=== PATIENT | male | born 1940 | race Caucasian/White ===

== ENCOUNTER → 2016-08-31 | Outpatient (CLI) | payer OTHER, MEDICARE ==
[~2016-08-31] MED LIST: ALLOPURINOL 30300 M1 PO; ALLOPURINOL 30300 M2 PO; ALLOPURINOL PO; AMARYL2 MG PO; ASPIRIN EC325 M1 PO; ASPIRIN EC81 M1 PO; ASPIRIN PO; ASPIRIN325 PO; ASPRIMOX 325 M325 MG PO; AVODART; B & O SUPPRETT1 EAC1 RECTAL; BACTRIM DS TAB1 EACH PO; BONINE25 MG PO; CENTRUM SILVER1 EAC4 PO; COUMADIN 5 MG TA5 M1; COUMADIN 5 MG TA5 M1 PO; FINASTERIDE5 MG PO; FISH OIL 1,0001 EAC5 PO; FLOMAX PO; FUROSEMIDE 40 M40 M1 PO; FUROSEMIDE 40 M40 MG PO; HYDROCODON-ACE1 EAC8 PO; HYDROCODONE-AP1 EAC6 PO; IBUPROFEN200 M1 PO; K-DUR 20 MEQ T20 MEQ PO; LASIX 40 MG TAB40 M2 PO; LIPITOR 20 MG T20 M1 PO; LISINOPRIL20 MG PO; LISINOPRIL40 MG PO; MULTIVITAMINS PO; NABUMETONE 750750 M1 PO; NORCO 5-325 TA1 EACH PO; NORVASC5 MG PO; OXYBUTYNIN 5 MG5 M2 PO; PERCOCET 5-3251 EACH PO; POTASSIUM CITRATE PO; POTASSIUM PO; POTASSIUM20 PO; PREDNISONE10 MG PO; PRILOSEC 20 MG20 MG PO; PRINIVIL PO; PROSCAR 5MG TABL5 MG PO; RELAFEN750 MG PO; SIMVASTATIN40 MG PO; TAMSULOSIN HCL0.4 M1 PO; TRANSDERM-SCOP1 EACH TD; VERTICALM25 MG PO; VESICARE 5 MG TA5 MG PO; ZESTORETIC 20-1 EAC3 PO; ZOCOR40 MG PO
== END ==
LOC: MRI 09:24
DX: M47.896 Other spondylosis, lumbar region (principal)

== ENCOUNTER → 2016-09-09 | Outpatient (CLI) | payer OTHER, MEDICARE ==
[~2016-09-09] VITALS: Ht 175.3 cm; Wt 129.4 kg
[~2016-09-09] MED LIST changes: +ANTIVERT25 MG PO; +ASA5UEC PO
--- NOTE | ~2016-09-09 | HPC ---
[facility] [place] [address] PAIN MANAGEMENT CONSULTATION Name: DARIOGREGORIOMARNITASNEEM Room #: REG ANGELINE Lyons#: [id number] Admission: 09/09/16 Attend Phys: Austin Carvajal DO Discharge: Date of : 42 Report #: [id number] THIS REPORT FOR: //name// CC: Hermilo Carvajal HISTORY OF PRESENT ILLNESS: The patient is a pleasant 76-year-old gentleman. He was seen 4-1/2 years ago for lumbar radicular symptoms, had an epidural injection in June of 2012 with significant improvement of baseline pain. The patient returns to the pain clinic noting that symptoms have gradually recurred; he is complaining specifically of pain worse in the morning. About 3 months ago, he was bending over to inspect something under a sink and developed acute exacerbation of pain. In the last 3 months, pain has been getting up to a 9 on a VAS. He describes constant, chronic aching, sharp, burning pain, low back, left a little worse than right, with pain primarily posterior thigh and some radiating into the anterior lateral kyle. He uses a cane in his right hand recently to help with balance. He has subjective weakness in both legs. Paresthesia, bilateral feet, though it is difficult to tell if this is secondary to poorly controlled diabetes or radicular symptoms, likely component of both. He has been worked up for some right hip DJD and tells me he had a surgery with Dr. Philipp Pino in 2011, who removed a bony fragment from the hip joint (?). He is having some increasing DJD issues in the hip proper, but the more radicular component of back and leg pain radiating down the posterolateral thigh to the anterior kyle has become quite problematic. PAST MEDICAL HISTORY: Reviewed the patient's medical history, he has non-insulin dependent diabetes, significant coronary artery disease, hypertension. Uses a CPAP for sleep apnea. Benign prostatic hypertrophy. History of gout. CURRENT MEDICATIONS: Include meclizine, glimepiride, Amlodipine, atorvastatin, Lasix, Prilosec, finasteride and allopurinol. PHYSICAL EXAMINATION: GENERAL: Reveals a 9-pedc-5-inch, 285-pound gentleman. BMI is 42.1 kilograms per meter squared. VITAL SIGNS: Stable, as noted in the EMR. NEUROLOGIC: Cranial nerves 2-12 are grossly intact. He does have a little lateral gaze nystagmus and admits to some easy vertigo. NECK: Thyroid is modestly enlarged, no nodules are noted. Cervical range of motion is otherwise full. MUSCULOSKELETAL: Upper extremity strength is generally preserved. He has an endomorphic build. Rises from the chair using armrest. Modestly antalgic gait. Diffuse tenderness across the low back. Positive straight leg raise, left somewhat greater than right. Does have decreased hip flexion strength and [address] [address] PAIN MANAGEMENT CONSULTATION Name: TASNEEM PARRA Room #: REG CLVahid Lyons#: [id number] Admission: 09/09/16 Attend Phys: Austin Carvajal DO Discharge: Date of : 42 Report #: [id number] decreased plantar flexion bilaterally. DIAGNOSTIC STUDIES: We did review diagnostic studies. He has a recent MRI from 08/31/2016. L3-L4 notes severe narrowing at 2 mm along the upper level of L4. Canal measures 3-4 mm at this level, with epceqeld-ol-pcnigm neural foraminal stenosis bilaterally. L4-L5 notes rkodhnys-pm-uahztx neural foraminal stenosis, right greater than the left. L5-S1 similarly notes moderate neural foraminal stenosis, bilateral. ASSESSMENT: Symptomatic lumbar radiculopathy secondary to spinal stenosis in a gentleman who has done well with occasional epidural injections; in fact, last injection had been greater than 3 years ago. RECOMMENDATIONS: 1. Continue baseline medications unchanged. 2. Lumbar epidural injection under fluoroscopy at L5-S1. 3. Follow up in 3 weeks to re-evaluate. PROCEDURE NOTE PROCEDURE: Lumbar epidural injection under fluoroscopy. PROCEDURE NOTE: After both written and informed consent to include risk of spinal cord damage, increased pain, weakness and dural puncture, the patient was taken to the fluoroscopy suite, placed in the prone position. After sterile prep and drape, a skin wheal with lidocaine was raised. A 22-gauge epidural Tuohy needle was inserted in the midline at the level of L5-S1 with good loss to resistance. Negative aspiration for cerebrospinal fluid or blood was noted. Then 1 mL of Omnipaque under biplanar fluoroscopy showed good spread within the epidural space. This was followed with 80 mg of triamcinolone plus 1 mL of 1.5% preservative-free Xylocaine, 0.5 mL Xylocaine was then injected to flush the needle; it was removed. The patient was monitored for an appropriate period of time and discharged in good and stable condition. <ELECTRONICALLY SIGNED> By: Austin Carvajal DO 09/12/16 1427 1048 1144 Austin Carvajal DO /nt
[2016-09-09 08:34] VITALS: BP 101/67
== END | disposition home or self-care (01) ==
LOC: PAIN 07:36
DX: M54.16 Radiculopathy, lumbar region (principal); M48.06 Spinal stenosis, lumbar region; Z68.41 Body mass index [BMI] 40.0-44.9, adult; E11.9 Type 2 diabetes mellitus without complications; I25.10 Atherosclerotic heart disease of native coronary artery without angina pectoris; I10 Essential (primary) hypertension; N40.0 Benign prostatic hyperplasia without lower urinary tract symptoms; M10.9 Gout, unspecified; Z87.891 Personal history of nicotine dependence

== ENCOUNTER → 2016-12-01 | Outpatient (CLI) | payer OTHER, MEDICARE ==
[~2016-12-01] VITALS: Ht 175.3 cm; Wt 128.9 kg
[~2016-12-01] MED LIST changes: +PRINIVIL40 MG PO
--- NOTE | ~2016-12-01 | HPC ---
[facility] [place] [address] PAIN MANAGEMENT CONSULTATION Name: TASNEEM PARRA Room #: REG [facility] Dav.#: [id number] Admission: 12/01/16 Attend Phys: Austin Carvajal DO Discharge: Date of : 42 Report #: [id number] THIS REPORT FOR: //name// CC: Hermilo Carvajal HISTORY OF PRESENT ILLNESS: The patient is a 76-year-old gentleman, prior seen in the pain clinic on 09/09/2016, given epidural injection at that time. He prior had epidural injections back in 2012. He returns to pain clinic today noting that injection afforded very good relief, specifically 90% relief for 2 months. Pain has gradually begun to recur, low back, right greater than left leg. Uses a cane for balance. PHYSICAL EXAMINATION: Shows a 76-year-old gentleman, moderately obese with a BMI of 42 kilograms per meter squared. Vital signs stable as noted in the EMR. Rises from chair using armrest. Modestly antalgic gait. Diffuse tenderness across the low back. Positive straight leg raise, right greater than left. Does have a little ataxic gait. ASSESSMENT: Symptomatic lumbar radiculopathy, greater than 90% relief for 2 months from lumbar epidural injection. RECOMMENDATION: 1. Repeat epidural injection under fluoroscopy today. We will use 60 mg of triamcinolone in consideration of diabetes. 2. Relafen 750 b.i.d., prescription generated, use this on a p.r.n. basis. Follow up simply as needed. ASSESSMENT: Symptomatic lumbar radiculopathy secondary to spinal stenosis. PROCEDURE: Lumbar epidural injection under fluoroscopy. PROCEDURE NOTE: After both written and informed consent to include risk of spinal cord damage, increased pain, weakness and dural puncture, the patient was taken to the fluoroscopy suite, placed in the prone position. After sterile prep and drape, a skin wheal with lidocaine was raised. A 4-1/2-inch, 20-gauge epidural Tuohy needle was inserted in the midline at L5-S1 with good loss to resistance. Negative aspiration for cerebrospinal fluid or blood was noted. Then 1 mL of Omnipaque under biplanar fluoroscopy showed good spread within the epidural space. This was followed with 60 mg of triamcinolone plus 1 mL of 1.5% preservative-free Xylocaine, 0.5 mL Xylocaine was then injected to flush the needle; it was removed. The patient was monitored for an appropriate period of time and discharged in good and stable condition. <ELECTRONICALLY SIGNED> By: Austin Carvajal DO 12/02/16 0926 1714 2239 Austin Carvajal DO /nt
[2016-12-01 10:15] VITALS: BP 150/85
== END | disposition home or self-care (01) ==
LOC: PAIN 09-26 08:52
DX: M54.16 Radiculopathy, lumbar region (principal); Z68.41 Body mass index [BMI] 40.0-44.9, adult; E66.9 Obesity, unspecified; Z87.891 Personal history of nicotine dependence

== ENCOUNTER → 2017-03-27 | Outpatient (CLI) | payer OTHER, MEDICARE ==
[~2017-03-27] VITALS: Ht 175.3 cm; Wt 130.3 kg
--- NOTE | ~2017-03-27 | HPC ---
[facility] [address] [place] [address] PAIN MANAGEMENT CONSULTATION Name: ERENDIRAMARNITASNEEM Room #: REG [facility] [id number] Admission: 03/27/17 Attend Phys: Austin Carvajal DO Discharge: Date of : 42 Report #: [id number] THIS REPORT FOR: //name// CC: Hermilo Carvajal DATE OF SERVICE: 03/27/2017 The patient is a 76-year-old gentleman typically treated for lumbar radiculopathy secondary to spinal stenosis. Prior had an injection in August with excellent relief, prior injections in 2012 with excellent relief. Last visit 12/01/2016, repeat epidural injection L5-S1 with dwindling efficacy. Returns to pain clinic today noting pain is 5 on VAS. BMI is elevated at 42.4 kilograms per meter squared. Vital signs are stable. He has not fallen in last 2 months but does use a cane for balance. He is describing increasing neurogenic claudication and loss of proprioception. States if he sits for a period of time and tries to get up, he has a difficult time ascertaining where his feet are relative in space. PHYSICAL EXAMINATION: Rises from chair using armrest and modestly antalgic gait. Lower extremity strength is diminished, but symmetric. Straight leg raise is modestly positive bilaterally. ASSESSMENT: Symptomatic lumbar radiculopathy secondary to spinal stenosis. Long discussion with the patient today about therapeutic options. RECOMMENDATIONS: 1. We will refer to Neurosurgery. Given concerns for neurogenic claudication and loss of proprioception. 2. We will repeat epidural injection under fluoroscopy today. 3. Follow up simply as needed. Last MRI 08/31/2016 was reviewed with the patient. ASSESSMENT: Symptomatic lumbar radiculopathy secondary to spinal stenosis. PROCEDURE: Lumbar epidural injection under fluoroscopy. PROCEDURE NOTE: After both written and informed consent to include risk of spinal cord damage, increased pain, weakness and dural puncture, the patient was taken to the fluoroscopy suite, placed in the prone position. After sterile prep and drape, a skin wheal with lidocaine was raised. A 4.5-inch 20-gauge Tuohy needle was inserted in the midline at L4-L5 with good loss to resistance. Negative aspiration for cerebrospinal fluid or blood was noted. Then 1 mL of Omnipaque under biplanar fluoroscopy showed good spread within the epidural space. This was followed with 80 mg of triamcinolone plus 1 mL of 1.5% [address] [address] PAIN MANAGEMENT CONSULTATION Name: TASNEEM PARRA Room #: REG CLI Eloy#: [id number] Admission: 03/27/17 Attend Phys: Austin Carvajal DO Discharge: Date of : 42 Report #: [id number] preservative-free Xylocaine, 0.5 mL Xylocaine was then injected to flush the needle; it was removed. The patient was monitored for an appropriate period of time and discharged in good and stable condition. <ELECTRONICALLY SIGNED> By: Austin Carvajal DO 03/29/17 0724 1551 [id number] Austin Carvajal DO /nt
[2017-03-27 13:16] VITALS: BP 154/82
== END ==
LOC: PAIN 07:38
DX: M54.16 Radiculopathy, lumbar region (principal); M48.061 Spinal stenosis, lumbar region without neurogenic claudication; Z85.51 Personal history of malignant neoplasm of bladder; Z79.82 Long term (current) use of aspirin; Z79.899 Other long term (current) drug therapy; I10 Essential (primary) hypertension; Z87.891 Personal history of nicotine dependence

== ENCOUNTER → 2017-04-24 | Outpatient (CLI) | payer OTHER, MEDICARE | LOC: ULTRA 12:54 | DX: I82.4Z2 Acute embolism and thrombosis of unspecified deep veins of left distal lower extremity (principal); M79.89 Other specified soft tissue disorders ==

== ENCOUNTER 2017-07-20 03:27 | Emergency (ER) | payer OTHER, MEDICARE ==
[~2017-07-20] VITALS: Ht 152.4 cm; Wt 124.5 kg
--- NOTE | ~2017-07-20 | EKG ---
[address] [place] [place] [address] ELECTROCARDIOGRAM REPORT Name: DARIOGREGORIOMARNITASNEEM TORRES Room #: DEP [facility]#: [id number] Admission: 07/20/17 Attend Phys: Discharge: 07/20/17 Date of : 42 Report #: [id number] THIS REPORT FOR: //name// [facility] ED Test Date: 2017-07-20 Test Time: 03:39:50 Pat Name: TASNEEM PARRA Department: Room: Gender: Triage Nurse: SWETHA : 1940 Requested By: Elizabeth Cunningham Order Number: [id number] MD: Demar Nicole Measurements Intervals Thornton Rate: 74 P: 26 NM: 186 QRS: 12 QRSD: 98 T: 33 QT: 393 QTc: 436 Interpretive Statements Sinus rhythm with occasional atrial premature complex Borderline low voltage, extremity leads Abnormal R-wave progression, late transition Compared to ECG 07/03/2012 16:33:16 Premature supraventricular complexes now present Electronically Signed On 07-20-2017 8:39:37 CDT by Demar Nicole [email or web address] <ELECTRONICALLY SIGNED> By: Demar Nicole MD, [facility] 07/20/17 0839 0339 0339 Demar Nicole MD, [facility] /EPI
[2017-07-20 04:13] LABS: ABSOLUTE NEUTROPHILS 4.6 thou/uL (1.4-8.2); BASOPHILS 1.2 % (0.0-2.0); EOSINOPHILS 2.9 % (0.0-3.0); HEMATOCRIT 42.2 % (42.0-52.0); HEMOGLOBIN 14.2 gm/dL (14.0-18.0); LYMPHOCYTES 23.6 % (24.0-44.0); MCH 27.7 pg (26.0-34.0); MCHC 33.7 g/dL (28.0-37.0); MCV 82.3 fL (80.0-100.0); MONOCYTES 8.7 % (1.0-8.0); PLATELET COUNT 187 thou/uL (150-400); POLYS 63.6 % (36.0-66.0); RBC 5.12 mil/uL (4.50-6.00); RDW 15.2 % (10.5-14.5); WBC 7.3 thou/uL (4.0-11.0)
[2017-07-20 04:18] LABS: ANION GAP 10 mmol/L (7-16); BUN 31 mg/dL (7-18); CALCIUM 8.8 mg/dL (8.5-10.1); CHLORIDE 106 mmol/L (98-107); CO2 22 mmol/L (21-32); CREATININE 1.2 mg/dL (0.7-1.3); GLUCOSE 119 mg/dL (74-106); POTASSIUM 3.6 mmol/L (3.5-5.1); SODIUM 138 mmol/L (136-145)
[2017-07-20 04:26] LABS: MAGNESIUM 1.8 mg/dL (1.8-2.4); TROPONIN-I < 0.04 ng/mL (<0.06)
== END 2017-07-20 06:10 | disposition home or self-care (01) ==
LOC: ER 03:27
PROVIDERS: Emergency Medicine
DX: R07.89 Other chest pain (principal); R00.2 Palpitations; K21.9 Gastro-esophageal reflux disease without esophagitis; I10 Essential (primary) hypertension; M10.9 Gout, unspecified; E78.00 Pure hypercholesterolemia, unspecified; N40.0 Benign prostatic hyperplasia without lower urinary tract symptoms; Z95.811 Presence of heart assist device

== ENCOUNTER → 2017-07-28 | Outpatient (CLI) | payer OTHER, MEDICARE | LOC: MRI 06:09 | DX: M51.16 Intervertebral disc disorders with radiculopathy, lumbar region (principal); M51.37 Other intervertebral disc degeneration, lumbosacral region; M48.061 Spinal stenosis, lumbar region without neurogenic claudication; N28.1 Cyst of kidney, acquired ==

== ENCOUNTER → 2017-08-21 | Outpatient (CLI) | payer OTHER, MEDICARE | LOC: CAT 09:02 | DX: M51.16 Intervertebral disc disorders with radiculopathy, lumbar region (principal); M41.86 Other forms of scoliosis, lumbar region; M48.061 Spinal stenosis, lumbar region without neurogenic claudication ==

== ENCOUNTER → 2017-09-06 | Outpatient (CLI) | payer OTHER, MEDICARE | LOC: CAT 09:54 | DX: N28.1 Cyst of kidney, acquired (principal); K76.89 Other specified diseases of liver; K40.90 Unilateral inguinal hernia, without obstruction or gangrene, not specified as recurrent; K57.30 Diverticulosis of large intestine without perforation or abscess without bleeding; I25.10 Atherosclerotic heart disease of native coronary artery without angina pectoris; I70.0 Atherosclerosis of aorta; M47.816 Spondylosis without myelopathy or radiculopathy, lumbar region; R91.8 Other nonspecific abnormal finding of lung field; I10 Essential (primary) hypertension; E11.9 Type 2 diabetes mellitus without complications ==

== ENCOUNTER → 2018-12-14 | Outpatient (CLI) | payer OTHER, MEDICARE | LOC: ULTRA 10:27 | DX: N43.3 Hydrocele, unspecified (principal); N50.3 Cyst of epididymis ==

== ENCOUNTER → 2019-02-27 | Outpatient (CLI) | payer OTHER, MEDICARE ==
[~2019-02-27] VITALS: Ht 170.2 cm; Wt 122.9 kg
[~2019-02-27] MED LIST changes: +PRILOSEC OTC20 MG PO; +ZYLOPRIM300 MG PO
--- NOTE | 2019-03-01 14:07 | PATH ---
[facility] [address] [address] [place] [address] PATHOLOGY RPT PROCEDURE Name: TASNEEM GOODWIN Room #: REG CLVahid MDawit.#: [id number] Admission: 02/27/19 Date of : 42 Discharge: Report #: [id number] Path Case #: [id number] [facility] Accession Number: [id number] . 01 Material submitted: . PART A: duodenum bulb - BIOPSY OF DUODENAL BULB SUBMUCOSAL NODULE PART B: stomach - GASTRIC POLYPS PART C: esophagus - BIOPSY OF DISTAL ESOPHAGUS R/O BARRETTS. Modifiers: distal PART D: colon - POLYP AT TRANSVERSE COLON X3. Modifiers: transverse PART E: cecum - POLYP AT CECUM PART F: colon - POLYP AT ASCENDING COLON. Modifiers: ascending PART G: colon - POLYP AT DESCENDING COLON. Modifiers: descending PART H: colon - POLYP AT SIGMOID COLON. Modifiers: sigmoid . 01 Clinical history: . Pre-op diagnosis: Dysphagia, polyp Post-op diagnosis: GERD, history of polyps C: R/O Harper's . 02 Diagnosis: A. 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 - Overlying mucosa showing reactive changes. . B. Polyps, gastric polyp, endoscopic biopsy: - Hyperplastic polyp. - Negative for dysplasia. . C. Gastroesophageal mucosa, GE junction, endoscopic biopsy: - Moderate chronic inflammation. - Negative for intestinal metaplasia or dysplasia. . D. Polyp x 3, transverse colon polyp, endoscopic biopsy: - One fragment showing a tubular adenoma without high grade dysplasia. - Remainder of fragments showing inflamed hyperplastic polyps without dysplasia. . E. Polyp, at cecum, endoscopic biopsy: - Tubular adenoma. - Negative for high grade dysplasia. . F. Polyp, at ascending colon, endoscopic biopsy: - Fragments of hyperplastic polyp. - Negative for dysplasia. . G. Polyp, at descending colon, endoscopic biopsy: [facility] [address] [place] [address] PATHOLOGY RPT PROCEDURE Name: TASNEEM GOODWIN Room #: REG CLI [facility].#: [id number] Admission: 02/27/19 Date of : 42 Discharge: Report #: [id number] Path Case #: [id number] - Hyperplastic polyp. - Negative for dysplasia. . H. Polyp, at sigmoid colon, endoscopic biopsy: - Hyperplastic polyp. - Negative for dysplasia. [facility] 02/28/2019 1234 Local . 02 Comment: Part A: Examination shows a neoplasm with ramon and organoid formation. Properly controlled immunohistochemical stains are performed on block A1. The tumor shows granular reactivity with synaptophysin, as well as chromogranin consistent with neuroendocrine origin. Ki-67 is performed for proliferative activity and it shows less than 1% activity present. CD45 is reactive within the lymphocytes. . Dr. Sara Wilkins has seen corporate sales representative slides of this case and concurs with the diagnosis rendered. Findings of this case are conveyed to Dr. Suresh Ochoa in the morning of 03/01/19. (IUV/db; 02/28/2019) . 02 Electronically signed: . Jyothi Galan MD, Pathologist NPI- [id number] . 01 Gross description: . A. The specimen is received in formalin, labeled "Tasneem Goodwin, biopsy of duodenal bulb submucosal nodule". Received are two segments of pale triana soft tissue measuring 0.4 cm each in maximum dimensions. The specimen is submitted entirely in cassette A1. . B. The specimen is received in formalin, labeled "Tasneem Goodwin, gastric polyps". Received are three segments of pale triana soft tissue ranging in size from 0.3 to 0.4 cm in maximum dimensions. The specimen is submitted entirely in cassette B1. . C. The specimen is received in formalin, labeled "Tasneem Goodwin, biopsy of distal esophagus, R/O Harper's". Received are two segments of pale triana soft tissue ranging in size from 0.5 to 0.6 cm in maximum dimensions. The specimen is submitted entirely in cassette C1. . D. The specimen is received in formalin, labeled "Tasneem Sharifge, polyp at transverse colon x3". Received are five segments of pale triana soft tissue ranging in size from 0.2 to 1.1 cm in maximum dimensions. The specimen is submitted entirely in cassette D1. . E. The specimen is received in formalin, labeled "Tasneem Digeorge, polyp [facility] [address] [place] [address] PATHOLOGY RPT PROCEDURE Name: TASNEEM GOODWIN Room #: REG [facility]#: [id number] Admission: 02/27/19 Date of : 42 Discharge: Report #: [id number] Path Case #: [id number] at cecum". Received are two segments of pale triana soft tissue ranging in size from 0.2 to 0.4 cm in maximum dimensions. The specimen is submitted entirely in cassette E1. . F. The specimen is received in formalin, labeled "Tasneem Goodwin, polyp at ascending colon x3". Received are three segments of pale triana soft tissue ranging in size from 0.5 to 0.7 cm in maximum dimensions. The specimen is submitted entirely in cassette F1. . G. The specimen is received in formalin, labeled "Tasneem Goodwin, polyp at descending colon". Received is a segment of pale triana soft tissue measuring 0.4 cm in maximum dimensions. The specimen is submitted entirely in cassette G1. . H. The specimen is received in formalin, labeled "Tasneem Goodwin, polyp at sigmoid". Received are four segments of pale triana soft tissue ranging in size from 0.3 to 0.4 cm in maximum dimensions. The specimen is submitted entirely in cassette H1. (CAA; 02/27/2019) QAC/QAC 02/27/2019 1545 Local . 02 Pathologist provided ICD-10: D3A.8, K31.7, K22.8, D12.3, K63.5, D12.0 . 02 CPT . 267562, 924807, 631812, 720883, 686394, 022533, 650400, 139875, D71743, Y82521, 800393 Specimen Comment: A courtesy copy of this report has been sent to [phone], [phone] Specimen Comment: [id number] Specimen Comment: Report sent to / DR TSANG Performed at: 01 [facility] [address], [place], [place] [id number] MD J Carlos Taylor MD Phone: [phone] Performed at: [address] [id number] MD Jyothi Galan MD Phone: [phone]
--- NOTE | 2019-03-06 10:57 | P ---
[facility] [place] [address] [place] [address] PROCEDURE REPORT Name: TASNEEM PARRA Room #: REG [facility] [id number] Admission: 02/27/19 Attend Phys: Artis Camacho Discharge: Date of : 42 Report #: [id number] THIS REPORT FOR: //name// CC: Artis Winslow MD DATE OF SERVICE: 02/27/2019 PROCEDURE PERFORMED: Upper endoscopy with biopsies and esophageal dilation. HISTORY OF PRESENT ILLNESS: The patient is a 78-year-old male with a history of gastroesophageal reflux disease, has been taking Prilosec for several years. He reports intermittent dysphagia to solids primarily. This has been ongoing for approximately 8-10 months. No previous history of upper endoscopy, also had episode of dark stools recently. Recent hemoglobin was 13 range. He denies any abdominal pain. He also has a history of colon polyps. He is here for EGD and colonoscopy today. DESCRIPTION OF PROCEDURE: The risks and benefits of the procedure were explained to the patient, those risks including but not limited to bleeding, perforation and the risk of sedation. He understood these risks and gave informed consent. Sedation was given using propofol per anesthesia. Next, using a standard Olympus upper endoscope, the scope was placed in the patient's mouth and advanced under direct vision through the esophagus, stomach and into the second portion of the duodenum. Larynx normal in appearance. The upper and mid esophagus was normal. In the distal esophagus, a possible short segment of Harper's was noted. Biopsies were obtained. No evidence of esophagitis or stricture was noted. There were several small gastric polyps noted. Several biopsies were obtained, otherwise normal gastric mucosa. The pylorus was normal and patent. In the duodenal bulb, there was a 1.2-cm submucosal nodule. Biopsies were obtained. There was one area of erythema on the nodule. No evidence of bleeding or ulceration. The first portion of the duodenum was normal as well as the second portion. In the second portion, the major papilla was seen and normal in appearance. No other abnormalities in the duodenum other than the submucosal nodule. At this point, the scope was then brought back up into the patient's stomach and a Savary guidewire was inserted through the scope, leaving the guidewire in place as the scope was then withdrawn. Next, a 51-Mongolian Savary dilation of the esophagus was then performed without difficulty. The wire and dilator removed. The scope was reintroduced into the patient's stomach. There was no evidence of a mucosal tear after dilation. The scope was then withdrawn and the procedure terminated. The patient tolerated the procedure well. IMPRESSION: 1. 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 [address] [address] PROCEDURE REPORT Name: TASNEEM PARRA Room #: REG ANGELINE Lyons#: [id number] Admission: 02/27/19 Attend Phys: Artis Camacho Discharge: Date of : 42 Report #: [id number] 2. Small gastric polyps. 3. Submucosal nodule in the duodenal bulb, biopsies obtained. RECOMMENDATIONS: 1. Await biopsy results. 2. Observe the patient post-dilation. 3. Continue daily PPI therapy. 4. The patient may need endoscopic ultrasound for further evaluation of a duodenal bulb submucosal nodule with possible removal at that time. Thank you for allowing me to participate in his care. <ELECTRONICALLY SIGNED> By: Artis Ochoa MD 03/06/19 1057 0839 1055 Artis Ochoa MD /nt
--- NOTE | 2019-03-06 11:19 | P ---
[facility] [place] [address] PROCEDURE REPORT Name: TASNEEM PARRA Room #: REG [facility] [id number] Admission: 02/27/19 Attend Phys: Artis Camacho Discharge: Date of : 42 Report #: [id number] THIS REPORT FOR: //name// CC: Artis Winslow MD DATE OF SERVICE: 02/27/2019 PROCEDURE PERFORMED: Colonoscopy with polypectomies. HISTORY OF PRESENT ILLNESS: The patient is a 78-year-old male with a history of colon polyps, the last colonoscopy, reportedly 2012. He also has a family history of colon cancer in his father. He had an episode of dark stools recently. He is on aspirin. Recent hemoglobin of 13. Upper endoscopy was just performed. Plan is for a colonoscopy. DESCRIPTION OF PROCEDURE: The risks and benefits of the procedure were explained to the patient, those risks including, but not limited to bleeding, perforation, and the risk of the sedation. He understood these risks and gave the informed consent. Sedation was given using propofol per anesthesia. Next, a digital rectal exam was initially performed, which was normal. Next, using a standard Olympus colonoscope, the scope was placed in the patient's anus and advanced under direct vision to the cecum. The overall prep was good. In the cecum, there was a 4 mm sessile polyp. This was removed with a cold forceps. Also noted in the cecum were 2 nonbleeding AVMs. Because of his history of dark stools, I proceeded with a cautery using a 7-Croatian bipolar cautery. No evidence of bleeding after cauterization. In the ascending colon, there were a total of 3 polyps, ranged from 5-8 mm, all sessile, all removed by a snare cautery. In the transverse colon, another 3 polyps were noted, two of the larger that were 5-8 mm in diameter, sessile, were removed by a hot snare cautery and the smaller 4 mm sessile polyp was removed by a cold forceps. In the descending colon, there was a 6 mm sessile polyp. This was removed by a snare cautery. In the sigmoid colon, there were two 3-4 mm sessile polyps, both removed by cold forceps. Also, multiple scattered diverticula noted in the sigmoid colon. No evidence of inflammation. The rectal mucosa was normal. On retroflexion, no abnormalities were noted. The scope was then withdrawn and the procedure was terminated. The patient tolerated the procedure well. IMPRESSION: 1. Multiple colonic polyps as described above. 2. Sigmoid diverticulosis. 3. Two cecal AVMs, status post cautery, nonbleeding. 4. Otherwise, normal colonoscopy. RECOMMENDATIONS: [address] [address] PROCEDURE REPORT Name: DARIOGREGORIOTASNEEM GRIDER BRIAN Room #: REG CLVahid Lyons#: [id number] Admission: 02/27/19 Attend Phys: Artis Camacho Discharge: Date of : 42 Report #: [id number] 1. Await biopsy results. 2. Repeat colonoscopy in 3 years. Thank you for allowing me to participate in his care. <ELECTRONICALLY SIGNED> By: Artis Ochoa MD 03/06/19 1119 0935 1247 Artis Ochoa MD /nt
== END | disposition home or self-care (01) ==
LOC: GI 07:16
DX: K92.1 Melena (principal); D12.3 Benign neoplasm of transverse colon; D12.0 Benign neoplasm of cecum; K57.30 Diverticulosis of large intestine without perforation or abscess without bleeding; K55.20 Angiodysplasia of colon without hemorrhage; D3A.010 Benign carcinoid tumor of the duodenum; K20.9 Esophagitis, unspecified; K31.7 Polyp of stomach and duodenum; R13.19 Other dysphagia; I10 Essential (primary) hypertension; E11.9 Type 2 diabetes mellitus without complications; I25.2 Old myocardial infarction; G47.30 Sleep apnea, unspecified; K21.9 Gastro-esophageal reflux disease without esophagitis; M19.90 Unspecified osteoarthritis, unspecified site; M10.9 Gout, unspecified; N40.0 Benign prostatic hyperplasia without lower urinary tract symptoms; Z86.010 Personal history of colon polyps; Z80.0 Family history of malignant neoplasm of digestive organs; Z85.51 Personal history of malignant neoplasm of bladder; Z87.891 Personal history of nicotine dependence; Z79.899 Other long term (current) drug therapy; Z98.890 Other specified postprocedural states; Z86.718 Personal history of other venous thrombosis and embolism; Z79.01 Long term (current) use of anticoagulants; Z79.82 Long term (current) use of aspirin
CPT/HCPCS: 62110; 62900

== ENCOUNTER → 2019-03-22 | Outpatient (CLI) | payer OTHER, MEDICARE ==
[2019-03-22 10:21] LABS: CREATININE 1.2 mg/dL (0.7-1.3)
== END ==
LOC: CAT 07:13
PROVIDERS: Specialist
DX: C7A.010 Malignant carcinoid tumor of the duodenum (principal); K76.89 Other specified diseases of liver; N28.1 Cyst of kidney, acquired; I25.10 Atherosclerotic heart disease of native coronary artery without angina pectoris; J92.9 Pleural plaque without asbestos; I70.0 Atherosclerosis of aorta; M25.78 Osteophyte, vertebrae; M51.26 Other intervertebral disc displacement, lumbar region; M48.061 Spinal stenosis, lumbar region without neurogenic claudication; M12.88 Other specific arthropathies, not elsewhere classified, other specified site

== ENCOUNTER → 2019-05-06 | Outpatient (CLI) | payer OTHER, MEDICARE | LOC: SJCVCIMAG 09:15 | DX: I35.0 Nonrheumatic aortic (valve) stenosis (principal); I65.23 Occlusion and stenosis of bilateral carotid arteries; I49.3 Ventricular premature depolarization; C7A.8 Other malignant neuroendocrine tumors; I25.10 Atherosclerotic heart disease of native coronary artery without angina pectoris; I10 Essential (primary) hypertension; E78.5 Hyperlipidemia, unspecified; E11.9 Type 2 diabetes mellitus without complications; Z82.49 Family history of ischemic heart disease and other diseases of the circulatory system; Z87.891 Personal history of nicotine dependence; Z79.82 Long term (current) use of aspirin; Z79.899 Other long term (current) drug therapy ==

== ENCOUNTER → 2019-07-18 | Outpatient (CLI) | payer OTHER, MEDICARE ==
[2019-07-18 13:04] LABS: CREATININE 0.9 mg/dL (0.7-1.3)
== END ==
LOC: LABMALL 11:33 → CAT 11:33
PROVIDERS: Urology
DX: C67.9 Malignant neoplasm of bladder, unspecified (principal)

== ENCOUNTER → 2019-07-30 | Outpatient (CLI) | payer OTHER, MEDICARE | LOC: LAB 10:00 | PROVIDERS: ATTEND Anesthesiology | DX: Z01.812 Encounter for preprocedural laboratory examination (principal); Z11.59 Encounter for screening for other viral diseases ==

== ENCOUNTER → 2019-11-06 | Outpatient (CLI) | payer OTHER, MEDICARE | LOC: SJCVC 11:08 | PROVIDERS: ATTEND Internal Medicine | DX: I25.10 Atherosclerotic heart disease of native coronary artery without angina pectoris (principal); I35.0 Nonrheumatic aortic (valve) stenosis; E78.5 Hyperlipidemia, unspecified; I10 Essential (primary) hypertension; I65.23 Occlusion and stenosis of bilateral carotid arteries; I49.3 Ventricular premature depolarization; C7A.8 Other malignant neuroendocrine tumors; E11.9 Type 2 diabetes mellitus without complications; Z79.899 Other long term (current) drug therapy ==